=== PATIENT | female | born 1980 | race African-American/Black ===

== ENCOUNTER 2018-03-21 03:05 | Inpatient (IN) | payer OTHER ==
[2018-03-21] MEDS ORDERED: AMPICILLIN SODIUM 2 GM VIAL ONE (05:04)
[2018-03-21] MEDS ORDERED: BUTORPHANOL TARTRATE 1 MG/ML VIAL IVPB ONE (05:18)
[2018-03-21] MEDS ORDERED: PROMETHAZINE HCL 25 MG/1 ML VIAL IVPUSH ONE (05:18)
[2018-03-21 05:30] VITALS: BMI 27.4
[2018-03-21] MEDS ORDERED: DEXTROSE 5%-LACTATED RINGERS 1,000 ML IV SCH (05:30)
[2018-03-21] MEDS ORDERED: AMPICILLIN - 2 GM in SODIUM CHLORIDE 100 ML IVPB ONE (05:31)
--- NOTE | 2018-03-21 05:31 | HP ---
Past Medical History - Primary Care Physician PCP:: Pinky Garcia - Admission Chief Complaint: 38 yrs ( AMA) , brought by EMT c/o onset LP since 1.00 AM. Pnc started at [facility] & transferred to [facility] History of Present Illness: pt states she moved from [place] to [place] . she had first visit in Nov 2017 . pt states after confirming positive test , blood work & sonogram was done she was told she has abnormal chromosome , she was referred to [facility]. Amniocentesis was done , everything was normal h/o Hyperthyroidism , she stopped the meds . 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 No: HTN, Murmur Pulmonary: No: Asthma Gastrointestinal: No: Constipation Hepatobiliary: Yes: Other (unknown) Renal/: No: UTI ...: 5 ...Para: 4 ...Term: 3 (3 ) ...: 1 (1 ) ...LMP: 07/06/17 ...EDC by Sono: 04/03/18 (38 weeks ) Additional OB History: G1 1999 6'5' Boy, [facility]. G2 2004 6'6' Girl [facility]. G3 2008 6'1" Girl [facility]. G4 2010 (32- 34 weeks ) Boy 5'3" [facility] Infectious Disease: Yes: Other (denies h/o strd) Psych: No: Addictions, Anxiety, Bipolar, Depression, Panic, Psychosis, Schizophrenia, Other Endocrine: Yes: Hyperthyroidism (diagnosed in 2016 , rx Methiazole & Propranolol ( due to palpitations ) she stopped the meds when she found out about . 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 not see tire mold engraver) - Past Surgical History Past Surgical History: Yes: None Hx Myomectomy: No Hx Transabdominal Cerclage: No - Smoking History Smoking history: Former smoker (at age 18 yrs) Have you smoked in the past 12 months: No - Alcohol/Substance Use Hx Alcohol Use: No History of Substance Use: reports: None Home Medications - Allergies Allergies/Adverse Reactions: Allergies Allergy/AdvReac Type Severity Reaction Status Date / Time No Known Allergies Allergy Verified 03/21/18 03:49 - Home Medications Home Medications: Ambulatory Orders 19 Tablet 1 tab PO DAILY 03/21/18 Physical Exam - Maternity Vital Signs: Vital Signs Temperature 98.5 F 03/21/18 03:53 Pulse Rate 90 03/21/18 03:53 Respiratory Rate 18 03/21/18 03:53 Blood Pressure 134/81 03/21/18 03:53 O2 Sat by Pulse Oximetry (%) Selected Entries 03/21/18 05:23 Weight 150 lb Constitutional: Yes: Well Nourished, Calm, Mild Distress Eyes: Yes: WNL HENT: Yes: WNL, Normocephalic Neck: Yes: WNL Cardiovascular: Yes: WNL, Regular Rate and Rhythm Lungs: Clear to auscultation Breast(s): Yes: WNL. No: Mass - Abdominal Exam/OB Fundal Height: 38 Number of Fetuses: Single Presentation: Vertex Regularity: Regular Intensity: Mild/Mod (4-5 min) Heart Rate (range): 120-130 Heart Rate Location: [facility] Category: I Accelerations: Uniform Decelerations: None - Vaginal Exam/OB Vaginal Bleediing: Yes, Bloody Show Speculum Exam: No Dilatation (cm): 3-4 Effacement (%): 70 Amniotic Membrane Status: Intact Presentation: Vertex/Position Station: -3 - Physical Exam Musculoskeletal: Yes: WNL Extremities: Yes: WNL. No: Calf Tenderness Edema: LLE: Trace, RLE: Trace Integumentary: Yes: Tattoos Deep Tendon Reflex Grade: Normal +2 ...Motor Strength: WNL Psychiatric: Yes: WNL, Alert, Oriented - Labs Lab Results: Laboratory Tests 03/21/18 03/21/18 03/21/18 05:20 05:20 05:20 WBC 4.9 Hgb 12.0 Hct 35.7 Plt Count 254 Neutrophils % 51.0 Lymphocytes % 32.0 Monocytes % 15.7 H PT with INR 11.20 INR 0.95 PTT (Actin FS) 28.0 Sodium 138 Potassium 3.9 Chloride 107 Carbon Dioxide 23 BUN 11 Creatinine 0.5 L Random Glucose 85 Total Bilirubin 0.4 AST 17 ALT 12 L TSH Free T4 Resin T3 Uptake Opiates Screen Methadone Screen Barbiturate Screen Phencyclidine Screen Ur Amphetamines Screen MDMA (Ecstasy) Screen Benzodiazepines Screen Cocaine Screen U Marijuana (THC) Screen HIV 1&2 Antibody Screen HIV P24 Antigen 03/21/18 03/21/18 03/21/18 05:20 05:20 05:20 WBC Hgb Hct Plt Count Neutrophils % Lymphocytes % Monocytes % PT with INR INR PTT (Actin FS) Sodium Potassium Chloride Carbon Dioxide BUN Creatinine Random Glucose Total Bilirubin AST ALT TSH < 0.01 L Free T4 2.32 H Resin T3 Uptake 34.9 Opiates Screen Methadone Screen Barbiturate Screen Phencyclidine Screen Ur Amphetamines Screen MDMA (Ecstasy) Screen Benzodiazepines Screen Cocaine Screen U Marijuana (THC) Screen HIV 1&2 Antibody Screen Negative HIV P24 Antigen Negative 03/21/18 05:20 WBC Hgb Hct Plt Count Neutrophils % Lymphocytes % Monocytes % PT with INR INR PTT (Actin FS) Sodium Potassium Chloride Carbon Dioxide BUN Creatinine Random Glucose Total Bilirubin AST ALT TSH Free T4 Resin T3 Uptake Opiates Screen Negative Methadone Screen Negative Barbiturate Screen Negative Phencyclidine Screen Negative Ur Amphetamines Screen Negative MDMA (Ecstasy) Screen Negative Benzodiazepines Screen Negative Cocaine Screen Negative U Marijuana (THC) Screen Negative HIV 1&2 Antibody Screen HIV P24 Antigen Laboratory Tests 03/21/18 05:20 RPR Titer Nonreactive Laboratory Tests 03/21/18 03/21/18 05:12 07:20 Blood Type Pending Antibody Screen Negative Laboratory Tests 03/21/18 05:12 Blood Type O POSITIVE Problem List - Problems (1) with 38 completed weeks gestation Code(s): Z3A.38 - 38 WEEKS GESTATION OF (2) Labor established Code(s): OQD2664 - (3) with care elsewhere Code(s): Z34.90 - ENCNTR FOR SUPRVSN OF NORMAL , UNSP, UNSP TRIMESTER Qualifiers: Trimester: third trimester Qualified Code(s): Z34.93 - Encounter for supervision of normal , unspecified, third trimester (4) History of inadequate care Code(s): O09.30 - SUPRVSN OF PREG W INSUFFICIENT ANTENAT CARE, UNSP TRIMESTER (5) H/O hyperthyroidism Code(s): Z86.39 - PERSONAL HISTORY OF ENDO, NUTRITIONAL AND METABOLIC DISEASE (6) AMA (advanced maternal age) multigravida 35+ Code(s): O09.529 - SUPERVISION OF ELDERLY MULTIGRAVIDA, UNSPECIFIED TRIMESTER Assessment/Plan 38 yrs (AMA) , 38.1 weeks , GBS unknown , drop in h/o hyperthyroidism , inadequate care admitted in labor Plan Iv Ampicillin . GbS prophylaxis stadol & phenrgan & or epidural for labor analgesia trial of labor for vaginal delivery
[2018-03-21 05:45] LABS: BASO % 0.5 % (0-2.0); EOS % 0.8 % (0-4.5); HEMATOCRIT 35.7 % (32.4-45.2); MCH 28.5 pg (25.7-33.7); MCHC 33.7 g/dl (32.0-36.0); MEAN CELL VOLUME 84.6 fl (80-96); MEAN PLT VOLUME 8.7 fl (7.5-11.1); MONO % 15.7 % (3.8-10.2); PLATELET COUNT 254 K/MM3 (134-434); RBC 4.22 M/mm3 (3.60-5.2); RDW 14.1 % (11.6-15.6); WHITE BLOOD COUNT 4.9 K/mm3 (4.0-10.0)
[2018-03-21 05:55] LABS: COCAINE, UR NEGATIVE ng/ml (CUTOFF=300); METHADONE, UR NEGATIVE ng/ml (CUTOFF=300); OPIATES, URI NEGATIVE ng/ml (CUTOFF=300); PHENCYCLIDINE,URINE NEGATIVE ng/ml (CUTOFF=25); URINE AMPHETAMINES NEGATIVE ng/ml (CUTOFF=500); URINE BARBITURATES NEGATIVE ng/ml (CUTOFF=200); URINE BENZODIAZEPINES NEGATIVE ng/ml (CUTOFF=200)
[2018-03-21] MEDS ORDERED: SODIUM PHOSPHATE/NA BIPHOS 133 ML ENEMA PR ONE (05:55)
[2018-03-21 05:56] LABS: INR 0.95 (0.83-1.09); PROTHROMBIN TIME (PATIENT) 11.2 SEC (9.7-13.0)
[2018-03-21 06:05] LABS: ALBUMIN 2.6 g/dl (3.4-5.0); ALK PHOS 281 U/L (45-117); ANION GAP 8 MMOL/L (8-16); BILIRUBIN,TOTAL 0.4 mg/dL (0.2-1); BLOOD UREA NITROGEN 11 mg/dL (7-18); CALCIUM 8.6 mg/dL (8.5-10.1); CHLORIDE 107 mmol/L (98-107); CO2 23 mmol/L (21-32); CREATININE 0.5 mg/dL (0.55-1.3); GLUCOSE,RANDOM 85 mg/dL (74-106); POTASSIUM 3.9 mmol/L (3.5-5.1); SGOT/AST 17 U/L (15-37); SGPT/ALT 12 U/L (13-61); SODIUM 138 mmol/L (136-145); TOT PROT 6.4 g/dl (6.4-8.2)
[2018-03-21] MEDS ORDERED: OXYTOCIN 30 UNITS in 0.9% NS 30 UNIT/500 ML INFUS.BAG IVPB SCH (07:30)
--- NOTE | 2018-03-21 07:30 | PN ---
Progress Note, Labor Vaginal Exam #1 Labor Exam Date: 03/21/18 Labor Exam Time: 07:20 Heart Rate (range): 130-140 Dilatation: 5 Effacement (%): 70 Amniotic Membrane Status: Intact Presentation: Vertex/Position Station: -2 Remarks: uc 2-4 min mod fhr cat-1 pt requests for pain meds rx iv stadol 2mg + phenrgan 25 mg iv stat Selected Entries 03/21/18 06:00 Temperature 98.7 F Pulse Rate 73 Blood Pressure 136/82 Vaginal Exam #2 Labor Exam Date: 03/21/18 Labor Exam Time: 09:00 Heart Rate (range): 120-130 Dilatation: 9 Effacement (%): 100 Amniotic Membrane Status: Ruptured (AROM clear, large amount) Presentation: Vertex/Position Station: -1 Remarks: fhr cat-1 , uc 2-4 min Selected Entries 03/21/18 08:00 Temperature 98.4 F Pulse Rate 88 Blood Pressure 141/86 Vaginal Exam #3 Labor Exam Date: 03/21/18 Labor Exam Time: 09:45 Heart Rate (range): 130-90 Dilatation: 10 Effacement (%): 100 Amniotic Membrane Status: Ruptured Presentation: Vertex/Position Station: +1 Remarks: fhr cat-1 , early decel uc 1-2 min pt pushing Selected Entries 03/21/18 09:00 Pulse Rate 89 Blood Pressure 140/86 Blood Pressure 104 Mean
[2018-03-21] MEDS ORDERED: PROMETHAZINE HCL 25 MG/1 ML VIAL ONE (07:31)
[2018-03-21] MEDS ORDERED: BUTORPHANOL TARTRATE 1 MG/ML VIAL ONE ×2 (07:31)
[2018-03-21] MEDS ORDERED: SODIUM CHLORIDE 100 ML IVPB ONE (07:55)
[2018-03-21] MEDS ORDERED: AMPICILLIN SODIUM 1 GM VIAL ONE (07:55)
[2018-03-21] MEDS ORDERED: OXYTOCIN 30 UNITS in 0.9% NS 30 UNIT/500 ML INFUS.BAG IVPB ONE (08:09)
[2018-03-21] MEDS ORDERED: OXYTOCIN 20 UNITS in 0.9% NS 20 UNIT/1,000 ML INFUS.BAG IV ONE (08:51)
[2018-03-21] MEDS ORDERED: TUBERCULIN PPD 5 TU/0.1ML SYRINGE (IN PATIENT USE ONLY) ID ONE (09:00)
[2018-03-21] MEDS ORDERED: AMPICILLIN - 1 GM in SODIUM CHLORIDE 100 ML IVPB SCH (09:31)
[2018-03-21] MEDS: OXYTOCIN 20 UNITS in 0.9% NS 20 UNIT/1,000 ML INFUS.BAG IV SCH ×2 (10:10→16:02)
[2018-03-21] MEDS ORDERED: WITCH HAZEL 50% (TUCKS) 40 PAD/JAR PAD TP PRN (10:30)
[2018-03-21] MEDS ORDERED: METHYLERGONOVINE MALEATE 0.2 MG/1 ML AMP IM PRN (10:30)
[2018-03-21] MEDS ORDERED: oxyCODONE HCL 5 MG TABLET PO PRN (10:30)
[2018-03-21] MEDS ORDERED: BISACODYL 10 MG SUPP.RECT RC PRN (10:30)
[2018-03-21] MEDS ORDERED: BENZOCAINE 28 GM HEMORRHOIDAL OINTMENT TP PRN (10:30)
[2018-03-21] MEDS ORDERED: BENZOCAINE 20% 57 GM BOTTLE TP PRN (10:30)
--- NOTE | 2018-03-21 10:42 | PN ---
Delivery - Delivery Vaginal Delivery: No Problems, Spontaneous (Baby Girl delievered, Vx [place] position, immediate oral & nasal suction was done , Anterior & posterior shoulder delievered without difficulty .Placenta & membranes delievered without difficulty. Perineum & Vagina was intact) Episiotomy/Laceration: None EBL (cc): 300 Delivery, Single - Stages of Labor Date 1st Stage Initiatied: 03/21/18 Time 1st Stage Initiated: 03:00 Date 2nd Stage Initiated: 03/21/18 Time 2nd Stage Initiated: 09:45 Date of Delivery: 03/21/18 Time of Delivery: 09:54 Date Placenta Delivered: 03/21/18 Time Placenta Delivered: 10:06 Placenta: Yes: Spontaneous, Uterine Exploration - Condition of Process Camera Operator/Windows Desktop Support Present: No Infant Gender: Female Weight: 6 lb 6 oz Position: Left, OA Total Hours ROM (Hrs/Mins): 1hr 5min - 1 Minute Total Score: 9 5 Minutes Total Score: 9 - Feeding Plan Initial Plan: Elected not to breastfeed exclusively throughout hospitalization Remarks - Remarks Remarks: 38 yrs , 38, weeks , admitted in labor drop in , inadequate care at [facility] h/o Hyperthyroidism , confirmed by TFT , Consultation requested from Dr Brady, recommended Rx Methimazole 10 mg po q 8hr . pt received 2 doses of IVAmpicillin for unknown GBS status she receieved stadol 2mg + phenrgan 25 mg iv for labor analgesia Pitocin augmentation was started during labor Intrapartum course uneventful
[2018-03-21 11:24] LABS: VENOUS PH 7.37 (7.32-7.42); VENOUS PO2 32.3 mmHg (28-48)
--- NOTE | 2018-03-21 11:55 | EKG ---
Test Reason : Blood Pressure : / mmHG Vent. Rate : 070 BPM Atrial Rate : 070 BPM P-R Int : 152 ms QRS Dur : 086 ms QT Int : 402 ms P-R-T Axes : 070 -22 050 degrees QTc Int : 434 ms SINUS RHYTHM WITH PREMATURE ATRIAL COMPLEXES MINIMAL VOLTAGE CRITERIA FOR LVH, MAY BE NORMAL VARIANT BORDERLINE ECG NO PREVIOUS ECGS AVAILABLE Confirmed by DIVINA PENA, AKOSUA ([id number]) on 03/21/2018 11:55:24 AM Referred By: Griselda GARCIA Confirmed By:AKOSUA MURCIA MD
[2018-03-21] MEDS: METHIMAZOLE 10 MG TABLET (FP) PO SCH ×3 (12:42→22:56)
--- NOTE | 2018-03-21 13:30 | CONSULT ---
Consult Consult Specialty:: endocrine Referred by:: dr.kushalani morales Reason for Consultation:: hyperthyroidism - History of Present Illness Chief Complaint: anxious/ heat intolerant History of Present Illness: 38 yrs pmh hyperthyroidism since 2008,treated with methimazole not compliant with follow up.stopped taking methimazole when she found out she was . , brought by EMT c/o onset LP since 1.00 AM.sp vaginal delivery,post alert and comfortable.denies cp dyspnea or palpitations. 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 No: HTN, Murmur Pulmonary: No: Asthma Gastrointestinal: No: Constipation Hepatobiliary: Yes: Other (unknown) Renal/: No: UTI Infectious Disease: Yes: Other (denies h/o strd) Psych: No: Addictions, Anxiety, Bipolar, Depression, Panic, Psychosis, Schizophrenia, Other Endocrine: Yes: Hyperthyroidism (diagnosed in 2017 , rx Methiazole & Propranolol ( due to palpitations ) she stopped the meds when she found out about . 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) - Past Surgical History Past Surgical History: Yes: None - Alcohol/Substance Use Hx Alcohol Use: No History of Substance Use: reports: None - Smoking History Smoking history: Former smoker (at age 18 yrs) Have you smoked in the past 12 months: No Home Medications - Allergies Allergies/Adverse Reactions: Allergies Allergy/AdvReac Type Severity Reaction Status Date / Time No Known Allergies Allergy Verified 03/21/18 03:49 - Home Medications Home Medications: Ambulatory Orders 19 Tablet 1 tab PO DAILY 03/21/18 Review of Systems - Review of Systems Constitutional: reports: Malaise Eyes: reports: No Symptoms HENT: reports: No Symptoms Neck: reports: No Symptoms Cardiovascular: reports: Shortness of Breath Respiratory: reports: No Symptoms Gastrointestinal: reports: No Symptoms Genitourinary: reports: No Symptoms Musculoskeletal: reports: Muscle Cramps Endocrine: reports: Excessive Sweating, Unexplained Weight Loss Physical Exam Vital Signs: Vital Signs Temperature 98.3 F 03/21/18 10:30 Pulse Rate 71 03/21/18 11:00 Respiratory Rate 18 03/21/18 11:00 Blood Pressure 137/82 03/21/18 11:00 O2 Sat by Pulse Oximetry (%) 99 03/21/18 11:15 Constitutional: Yes: Anxious Eyes: Yes: EOM Intact HENT: Yes: Normocephalic Neck: Yes: Trachea Midline Cardiovascular: Yes: Regular Rate and Rhythm Respiratory: Yes: CTA Bilaterally Gastrointestinal: Yes: Normal Bowel Sounds Renal/: Yes: WNL Extremities: Yes: WNL Neurological: Yes: Alert, Oriented Labs: CBC, BMP 03/21/18 05:20 03/21/18 05:20 Problem List - Problems (1) Thyrotoxicosis with diffuse goiter and without thyroid storm Code(s): E05.00 - THYROTOXICOSIS W DIFFUSE GOITER W/O THYROTOXIC CRISIS (2) AMA (advanced maternal age) multigravida 35+ Code(s): O09.529 - SUPERVISION OF ELDERLY MULTIGRAVIDA, UNSPECIFIED TRIMESTER (3) H/O hyperthyroidism Code(s): Z86.39 - PERSONAL HISTORY OF ENDO, NUTRITIONAL AND METABOLIC DISEASE (4) History of inadequate care Code(s): O09.30 - SUPRVSN OF PREG W INSUFFICIENT ANTENAT CARE, UNSP TRIMESTER (5) Labor established Code(s): GDI8408 - (6) with 38 completed weeks gestation Code(s): Z3A.38 - 38 WEEKS GESTATION OF (7) with care elsewhere Code(s): Z34.90 - ENCNTR FOR SUPRVSN OF NORMAL , UNSP, UNSP TRIMESTER Qualifiers: Trimester: third trimester Qualified Code(s): Z34.93 - Encounter for supervision of normal , unspecified, third trimester Assessment/Plan Current Active Problems AMA (advanced maternal age) multigravida 35+ (Acute) H/O hyperthyroidism (Acute) History of inadequate care (Acute) Labor established (Acute) with 38 completed weeks gestation (Acute) with care elsewhere (Acute) Thyrotoxicosis with diffuse goiter and without thyroid storm (Acute) Abnormal Lab Results 03/21/18 03/21/18 03/21/18 05:20 05:20 05:20 Monocytes % 15.7 H Creatinine 0.5 L ALT 12 L Alkaline Phosphatase 281 H Albumin 2.6 L TSH < 0.01 L Free T4 03/21/18 05:20 Monocytes % Creatinine ALT Alkaline Phosphatase Albumin TSH Free T4 2.32 H plan: tapazole 10mg tid follow up outpatient given instruction and follow up suggestion for blood work outpatient
[2018-03-21] MEDS: FERROUS SO4 325 MG TABLET (FP) PO SCH (16:48)
[2018-03-21] MEDS: IBUPROFEN 600 MG TABLET (FP) PO PRN (16:48)
[2018-03-21] MEDS: ACETAMINOPHEN 325 MG TABLET (FP) PO PRN (16:49)
[2018-03-22 05:24] LABS: HBsAG SCREEN Negative (Negative)
[2018-03-22] MEDS: METHIMAZOLE 10 MG TABLET (FP) PO SCH ×3 (06:44→21:20)
[2018-03-22 07:16] LABS: BASO % 0.4 % (0-2.0); EOS % 1.7 % (0-4.5); HEMATOCRIT 31.6 % (32.4-45.2); HEMOGLOBIN 10.5 GM/dL (10.7-15.3); LYMPH % 25.3 % (8-40); MCH 28.4 pg (25.7-33.7); MCHC 33.3 g/dl (32.0-36.0); MEAN CELL VOLUME 85.3 fl (80-96); MEAN PLT VOLUME 8.8 fl (7.5-11.1); MONO % 13.3 % (3.8-10.2); NEUT % 59.3 % (42.8-82.8); PLATELET COUNT 233 K/MM3 (134-434); RDW 14.3 % (11.6-15.6); WHITE BLOOD COUNT 7.2 K/mm3 (4.0-10.0)
[2018-03-22 07:17] LABS: RUBELLA IgG ANTIBODY < 0.90 index (Immune >0.99)
--- NOTE | 2018-03-22 08:06 | PN ---
Post Progress Note Type of Delivery: Vital Signs: Vital Signs Temperature 97.7 F 03/22/18 06:00 Pulse Rate 82 03/22/18 06:00 Respiratory Rate 18 03/22/18 06:00 Blood Pressure 108/69 03/22/18 06:00 O2 Sat by Pulse Oximetry (%) 99 03/21/18 22:00 Uterus: Yes: Fundus Firm Abdomen/GI: Yes: Abdomen soft Lochia: Yes: Rubra Lochia, amount: Small Extremities: Yes: Calves non-tender Perineum: Yes: Intact Activity: Ambulating - Labs Labs: CBC WBC 7.2 K/mm3 (4.0-10.0) 03/22/18 06:00 RBC 3.70 M/mm3 (3.60-5.2) 03/22/18 06:00 Hgb 10.5 GM/dL (10.7-15.3) L 03/22/18 06:00 Hct 31.6 % (32.4-45.2) L 03/22/18 06:00 MCV 85.3 fl (80-96) 03/22/18 06:00 MCH 28.4 pg (25.7-33.7) 03/22/18 06:00 MCHC 33.3 g/dl (32.0-36.0) 03/22/18 06:00 RDW 14.3 % (11.6-15.6) 03/22/18 06:00 Plt Count 233 K/MM3 (134-434) 03/22/18 06:00 MPV 8.8 fl (7.5-11.1) 03/22/18 06:00 Absolute Neuts (auto) 4.2 K/mm3 (1.5-8.0) 03/22/18 06:00 Neutrophils % 59.3 % (42.8-82.8) 03/22/18 06:00 Lymphocytes % 25.3 % (8-40) D 03/22/18 06:00 Monocytes % 13.3 % (3.8-10.2) H 03/22/18 06:00 Eosinophils % 1.7 % (0-4.5) D 03/22/18 06:00 Basophils % 0.4 % (0-2.0) 03/22/18 06:00 Nucleated RBC % 0 % (0-0) 03/22/18 06:00 Assessment/Plan 38yo s/p , PPD#1 Routine PP care OOB, ambulate Labs reviewed S/P Endo consult; methimazole 10mg bid Anticipate d/c to home PPD#2 Gerard Mccarty MD
[2018-03-22] MEDS: FERROUS SO4 325 MG TABLET (FP) PO SCH ×2 (08:16→16:54)
[2018-03-22] MEDS: PRENATAL VITAMINS W/ FOLIC ACID TABLET (FP) PO SCH (09:30)
[2018-03-22] MEDS: IBUPROFEN 600 MG TABLET (FP) PO PRN ×2 (09:30→18:30)
[2018-03-22] MEDS: ACETAMINOPHEN 325 MG TABLET (FP) PO PRN ×2 (09:32→18:30)
[2018-03-22] MEDS ORDERED: SENNOSIDES/DOCUSATE COMBO (SENNA PLUS) TABLET (UD) PO PRN (22:00)
[2018-03-23] MEDS: METHIMAZOLE 10 MG TABLET (FP) PO SCH ×2 (06:29→14:02)
--- NOTE | 2018-03-23 07:43 | PN ---
Progress Note (short form) - Note Progress Note: ppd 2 doing well, no c/o . voids ok abdomen soft, uterus firm, non tender,\ lochia mild no calf tenderness plan d/c home , rtc 4 weeks
[2018-03-23] MEDS: FERROUS SO4 325 MG TABLET (FP) PO SCH (08:02)
[2018-03-23 09:17] VITALS: BP 119/63; PULSE 75; TEMP 98.5
[2018-03-23] MEDS: PRENATAL VITAMINS W/ FOLIC ACID TABLET (FP) PO SCH (10:58)
--- NOTE | 2018-03-23 12:35 | DS ---
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 Vital Signs: Vital Signs Temperature 98.5 F 03/23/18 09:14 Pulse Rate 75 03/23/18 09:14 Respiratory Rate 18 03/23/18 09:14 Blood Pressure 119/63 03/23/18 09:14 O2 Sat by Pulse Oximetry (%) 99 03/21/18 22:00 Constitutional: Yes: Well Nourished Eyes: Yes: WNL HENT: Yes: WNL Neck: Yes: WNL Cardiovascular: Yes: WNL, Other (ekg done sinus rhythm withe premature atrial complexes) Respiratory: Yes: WNL, Other (PPD pos , chest Xray 03/23/18 normal, no ac patholgy) Gastrointestinal: Yes: WNL ...Rectal Exam: Yes: WNL Renal/: Yes: WNL, Urethral Discharge Adnexa: Not Palpable: Right ....Post : Yes: Uterus firm, Moderate lochia rubra Breast(s): Yes: WNL (BF) Musculoskeletal: Yes: WNL Extremities: Yes: WNL Edema: LLE: Trace, RLE: Trace Integumentary: Yes: WNL Wound/Incision: Yes: Steri Strips Neurological: Yes: WNL ...Motor Strength: WNL Psychiatric: Yes: WNL, Alert, Oriented Labs: CBC, BMP 03/22/18 06:00 03/21/18 05:20 Delivery - Delivery Vaginal Delivery: No Problems, Spontaneous (Baby Girl delievered, Vx [place] position, immediate oral & nasal suction was done , Anterior & posterior shoulder delievered without difficulty .Placenta & membranes delievered without difficulty. Perineum & Vagina was intact) Type of Anesthesia: None Episiotomy/Laceration: None EBL (cc): 300 Delivery, Single - Stages of Labor Date 1st Stage Initiatied: 03/21/18 Time 1st Stage Initiated: 03:00 Date 2nd Stage Initiated: 03/21/18 Time 2nd Stage Initiated: 09:45 Date of Delivery: 03/21/18 Time of Delivery: 09:54 Time Placenta Delivered: 10:06 Placenta: Yes: Spontaneous, Uterine Exploration - Condition of Lamp Cleaner/Day Care Home Mother Present: No Infant Gender: Female Weight: 6 lb 6 oz Position: Left, OA Total Hours ROM (Hrs/Mins): 1hr 5min - 1 Minute Total Score: 9 5 Minutes Total Score: 9 - [place] Feeding Plan Initial Plan: Elected not to breastfeed exclusively throughout hospitalization Remarks - Remarks Remarks: 38 yrs , 38, weeks , admitted in labor drop in , inadequate care at [facility] h/o Hyperthyroidism , confirmed by TFT , Consultation requested from Dr Brady, recommended Rx Methimazole 10 mg po q 8hr . pt received 2 doses of IVAmpicillin for unknown GBS status she receieved stadol 2mg + phenrgan 25 mg iv for labor analgesia Pitocin augmentation was started during labor Intrapartum course uneventful . Dr De La Cruz consult noted , pt will follow for Hypethyroidism with black jack dealer, Dr Brady's referal given rx po Methimazole 10 mg bid at home pp instructions given Discharge Summary Reason For Visit: LABOR Current Active Problems AMA (advanced maternal age) multigravida 35+ (Acute) H/O hyperthyroidism (Acute) History of inadequate care (Acute) Labor established (Acute) with 38 completed weeks gestation (Acute) with care elsewhere (Acute) Thyrotoxicosis with diffuse goiter and without thyroid storm (Acute) Condition: Stable - Instructions Diet, Activity, Other Instructions: Post Instructions DIET: Continue good diet high in protein, calcium, and iron rich foods. Drink at least eight (8) glasses of water daily in addition to other fluids. Regular diet MEDICATIONS: Continue vitamins and iron as previously directed. Motrin and Tylenol may be taken for minor discomfort. ACTIVITY: Mild to moderate exercise may be started in two (2) weeks. Take frequent rest periods. Resume normal activity after six (6) week check up. WOUND CARE OF OPERATIVE SITE: Continue use of perineal bottle until vaginal discharge stops. Keep area clean. Shower daily. Keep abdominal wound dry. Report any drainage or redness to physician. Tub baths, tampons and douches are not permitted for [address] Breast feeding & Bottle feeding BREAST CARE: (For those that are not ): If engorgement occurs: Wear tight fitting bra. Take Tylenol or Motrin for pain. Apply cold packs (ice in bags to each breast ) FAMILY PLANNING: There are many control alternatives to pursue and they should be discussed at your first office visit. You may resume sexual activity after your six (6) week check up. (Remember, breast feeding is not a contraceptive) NEXT PHYSICIAN APPOINTMENT: Be certain to call for a six 4- (6) week appointment, unless otherwise directed. For PP visit call [phone] at 2, [place] clarence for appointment Call Radiation Control Health Physicist Dr Brady's office for appointment for Thyroid function follow up . Address [address] [facility] . Off Call Clinic or got to Emergency Dept if you have any of the following: Heavy vaginal bleeding Painful urination Leg pain Unusual odor noted to vaginal bleeding High fever Red streaking noted on breast Referrals: Pinky Garcia MD [Staff Physician] - Simon Brady MD [Staff Physician] - Disposition: HOME - Home Medications Comprehensive Discharge Medication List: Ambulatory Orders Ibuprofen [Motrin -] 600 mg PO QID PRN #28 tablet 03/21/18 Methimazole [Tapazole -] 10 mg PO Q12H #60 tablet 03/21/18 19 Tablet 1 tab PO DAILY 03/21/18
== END 2018-03-23 14:00 | disposition home or self-care (01) | DRG 560 ==
LOC: JDEL 03:05 → JLDR 05:00 → J3W 13:25
PROVIDERS: ADMIT Obstetrics & Gynecology; ATTEND Obstetrics & Gynecology
PROC: 10E0XZZ Delivery of Products of Conception, External Approach (ICD-10-PCS; principal; 2018-03-21)
DX: O99.284 Endocrine, nutritional and metabolic diseases complicating childbirth (principal); E05.90 Thyrotoxicosis, unspecified without thyrotoxic crisis or storm; Z3A.38 38 weeks gestation of pregnancy; Z37.0 Single live birth; O75.89 Other specified complications of labor and delivery; Z87.891 Personal history of nicotine dependence; E05.00 Thyrotoxicosis with diffuse goiter without thyrotoxic crisis or storm
CPT/HCPCS: 36415; 59409; 71046-TC-FY; 80053; 80307; 82803; 84439; 84443; 84479; 85025; 85610; 85730; 86593; 86762; 86850; 86900; 86901; 87340; 87389; 93005; 93010